=== PATIENT | female | born 1950 ===

== ENCOUNTER → 2022-04-03 | Outpatient (CLI) | payer MEDICARE | END | disposition home or self-care (01) | LOC: PREOP 06:38 | PROVIDERS: ATTEND Otolaryngology Otolaryngology/Facial Plastic Surgery | DX: Z01.818 Encounter for other preprocedural examination (principal) ==

== ENCOUNTER 2023-08-13 05:32 | Outpatient (CLI) | payer OTHER ==
[~2023-08-13] VITALS: Ht 172.7 cm; Wt 65.1 kg
[2023-08-13] MEDS ORDERED: GABA300S3 PO (11:22)
[2023-08-13] MEDS ORDERED: CHOL1LIQ MC (11:22)
[2023-08-13] MEDS ORDERED: IBUP-1780 PO (11:22)
[2023-08-13] MEDS ORDERED: SPIR25TA5 PO (11:22)
== END 2023-08-13 11:51 | disposition home or self-care (01) ==
LOC: PREOP 05:32
PROVIDERS: ATTEND Otolaryngology Otolaryngology/Facial Plastic Surgery
DX: Z01.818 Encounter for other preprocedural examination (principal)

== ENCOUNTER → 2023-09-16 | Outpatient (CLI) | payer OTHER ==
[~2023-09-16] MED LIST: CHOL1LIQ MC; GABA300S3 PO; IBUP-1780 PO; SPIR25TA5 PO
== END | disposition home or self-care (01) ==
LOC: PREOP 05:50
PROVIDERS: ATTEND Otolaryngology Otolaryngology/Facial Plastic Surgery
DX: Z01.818 Encounter for other preprocedural examination (principal)

== ENCOUNTER → 2023-10-15 | Outpatient (CLI) | payer OTHER ==
[~2023-10-15] VITALS: Ht 172.7 cm; Wt 65.1 kg
== END | disposition home or self-care (01) ==
LOC: PREOP 05:30
PROVIDERS: ATTEND Otolaryngology Otolaryngology/Facial Plastic Surgery
DX: Z01.818 Encounter for other preprocedural examination (principal)